=== PATIENT | female | born 1990 | race Two or more races ===

== ENCOUNTER → 2016-12-19 | Outpatient (CLI) | payer OTHER ==
[~2016-12-19] MED LIST: IBUP1TAB7 PO; PREN27TA3 PO; TYLE325T5 PO; ZANTTAB9 PO
[2016-12-19 21:07] LABS: BASO % 0.3 % (0.0-1.0); EOS # 0.2 K/mm3 (0.0-0.50); EOS % 1.9 % (0.0-3.0); LARGE UNSTAINED CELL # 0.2 K/mm3 (0.0-0.4); LARGE UNSTAINED CELL % 1.6 % (0.0-4.0); LYMPH # 2.4 K/mm3 (1.5-6.5); LYMPH % 22.4 % (24.0-44.0); MEAN CORPUSCULAR HEMOGLOBIN 33.6 pg (27.0-33.0); MEAN CORPUSCULAR HGB CONC 35.5 g/dl (32.0-36.5); MEAN CORPUSCULAR VOLUME 94.7 fl (80.0-96.0); MONO # 0.6 K/mm3 (0.0-0.8); MONO % 5.5 % (0.0-5.0); NEUTROPHILS # 7.2 K/mm3 (1.8-7.7); NEUTROPHILS % 68.4 % (36.0-66.0); PLATELET COUNT, AUTOMATED 292 k/mm3 (150-450); RED CELL DISTRIBUTION WIDTH 11.7 % (11.5-14.5); WHITE BLOOD COUNT 10.5 K/mm3 (4.0-10.0)
[2016-12-20 07:35] LABS: HBsAg Prenatal NEGATIVE (NEGATIVE)
== END ==
LOC: M LRY 15:29
PROVIDERS: ATTEND Advanced Practice Midwife
DX: Z34.81 Encounter for supervision of other normal pregnancy, first trimester (principal)

== ENCOUNTER → 2017-02-22 | Outpatient (REF) | payer OTHER | LOC: M SFHCLERA 11:23 | PROVIDERS: ATTEND Physician Assistant | DX: J02.9 Acute pharyngitis, unspecified (principal) ==

== ENCOUNTER → 2017-02-26 | Outpatient (CLI) | payer OTHER ==
--- NOTE | 2017-03-06 19:18 | REP ---
COMPLETE OBSTETRICAL ULTRASOUND: CLINICAL: Anatomical evaluation. FINDINGS: Ultrasound examination demonstrates single live intrauterine in breech presentation. motion was identified by technologist. Placenta is noted anteriorly and grade 0 without evidence for placenta previa or abruption. Amniotic fluid volume is normal. Cervix measures 3.3 cm in length and appears closed. No evidence for nuchal cord. Gestational age by current measurements 18 weeks 3 days with estimated date of delivery 07/27/2017. FHR 139 beats per minute. BPD 4.1 cm = 18 weeks 2 days HC 15.7 cm = 18 weeks 4 days AC 13.7 cm = 19 weeks 1 day FL 2.8 cm = 18 weeks 3 days HL 2.9 cm = 19 weeks 2 days HC/AC ratio 1.14. Estimated weight 258 grams (58th percentile). Anatomical assessment demonstrates normal cranium, choroid plexus, cavum, cerebellum/posterior fossa, facial features, lungs, four chamber heart, diaphragm, stomach, cord insertion/three vessel cord, kidneys/bladder, and extremities. Suboptimal evaluation of the cardiac ventricular outflow tracts and spine noted. IMPRESSION: Single live intrauterine in breech presentation. Anatomical limitations as described above may warrant reevaluation and followup. Remainder of the examination is within normal limits. Signed by Aroldo Reinoso MD 03/07/2017 08:09 A
== END ==
LOC: M SMT 09:01
PROVIDERS: ATTEND Specialist
DX: Z36.89 Encounter for other specified antenatal screening (principal); Z3A.19 19 weeks gestation of pregnancy

== ENCOUNTER → 2017-04-16 | Outpatient (CLI) | payer OTHER | LOC: M SMT 11:35 | DX: Z36.89 Encounter for other specified antenatal screening (principal); Z3A.26 26 weeks gestation of pregnancy | CPT/HCPCS: 76816 ==

== ENCOUNTER → 2017-05-13 | Outpatient (CLI) | payer OTHER ==
[2017-05-13 13:35] LABS: BASO # 0.1 10^3/uL (0.0-0.2); BASO % 0.7 % (0.0-1.0); EOS # 0.2 10^3/uL (0.0-0.50); EOS % 1.6 % (0.0-3.0); HEMATOCRIT 32.9 % (36.0-47.0); HEMOGLOBIN 11.1 g/dl (12.0-16.0); IMMATURE GRANULOCYTE % 2.3 % (0-3.0); LYMPH # 2.5 10^3/uL (1.5-6.5); LYMPH % 18.4 % (24.0-44.0); MEAN CORPUSCULAR HEMOGLOBIN 32.8 pg (27.0-33.0); MEAN CORPUSCULAR HGB CONC 33.7 g/dl (32.0-36.5); MEAN CORPUSCULAR VOLUME 97.3 fl (80.0-96.0); MONO # 1.1 10^3/uL (0.0-0.8); MONO % 7.9 % (0.0-5.0); NEUTROPHILS # 9.5 10^3/uL (1.8-7.7); NEUTROPHILS % 69.1 % (36.0-66.0); PLATELET COUNT, AUTOMATED 329 10^3/uL (150-450); RED BLOOD COUNT 3.38 10^6/uL (4.00-5.40); RED CELL DISTRIBUTION WIDTH 13.1 % (11.5-14.5); WHITE BLOOD COUNT 13.7 10^3/uL (4.0-10.0)
[2017-05-13 14:08] LABS: GLUCOSE CHALLENGE TEST 1 HOUR 115 MG/DL (LESS THAN 140)
== END ==
LOC: M SMT 09:54
DX: Z36.89 Encounter for other specified antenatal screening (principal); Z3A.00 Weeks of gestation of pregnancy not specified
CPT/HCPCS: 82950

== ENCOUNTER → 2017-05-13 | Outpatient (REF) | payer OTHER | LOC: M LAB REF 13:20 | DX: Z34.82 Encounter for supervision of other normal pregnancy, second trimester (principal) | CPT/HCPCS: 87086 ==

== ENCOUNTER → 2017-06-24 | Outpatient (REF) | payer OTHER | LOC: M LAB REF 12:55 | DX: Z34.83 Encounter for supervision of other normal pregnancy, third trimester (principal) | CPT/HCPCS: 87186 ==

== ENCOUNTER 2017-07-18 08:56 | Inpatient (IN) | payer OTHER ==
[2017-07-18] MEDS ORDERED: LR 1,000 ML IV (09:17)
[2017-07-18 09:57] LABS: HEMATOCRIT 32.6 % (36.0-47.0); HEMOGLOBIN 11.3 g/dl (12.0-15.5); MEAN CORPUSCULAR HEMOGLOBIN 33.2 pg (27.0-33.0); MEAN CORPUSCULAR HGB CONC 34.7 g/dl (32.0-36.5); MEAN CORPUSCULAR VOLUME 95.9 fl (80.0-96.0); PLATELET COUNT, AUTOMATED 325 10^3/uL (150-450); RED CELL DISTRIBUTION WIDTH 13.2 % (11.5-14.5); WHITE BLOOD COUNT 18.8 10^3/uL (4.0-10.0)
[2017-07-18] MEDS: PENICILLIN G POTASSIUM IV 5 MU in D5W MINI-BAG PLUS 100 ML IV (10:16)
[2017-07-18] MEDS: LACTATED RINGER'S 1000 ML IV (10:21)
[2017-07-18] MEDS ORDERED: FENTANYL 2MCG/ML ROPIVACAINE 0.2% IN 0.9% NACL 200ML IVBAG As Ordered (11:10)
[2017-07-18] MEDS ORDERED: LACTATED RINGER'S 1000 ML IV (12:00)
[2017-07-18] MEDS ORDERED: ePHEDrine SULFATE 25 MG/5 ML(5MG/ML) SYRINGE IV (12:00)
[2017-07-18] MEDS ORDERED: ONDANSETRON 4MG/2ML VIAL (J2405) IV (12:00)
[2017-07-18] MEDS ORDERED: NALOXONE INJ 0.4 MG/1 ML VIAL (J2310) IV (12:00)
[2017-07-18] MEDS ORDERED: EPIDURAL/PCA KEYS XX (12:00)
[2017-07-18] MEDS ORDERED: FENTANYL/ROPIVACAINE/NACL BAG 200 ML EPIDURAL (12:00)
[2017-07-18] MEDS ORDERED: REFRIGERATOR IV KEYS XX (12:00)
[2017-07-18] MEDS ORDERED: EPIDURAL COMMENT XX (12:00)
[2017-07-18] MEDS ORDERED: diphenhydrAMINE INJ 50MG/ML VIAL (J1200) IV (12:00)
[2017-07-18] MEDS ORDERED: OXYTOCIN 30 UNITS IN 0.9% NaCl 500ML IV BAG (J2590) As Ordered (12:06)
[2017-07-18] MEDS ORDERED: METHYLERGONOVINE MALEATE 0.2 MG TAB PO (12:30)
[2017-07-18] MEDS ORDERED: ANUSOL HC CREAM 30GM TOP (12:30)
[2017-07-18] MEDS ORDERED: MEASLES,MUMPS,RUBELLA VACCINE INJ (MMR-II) (90707) SC (12:30)
[2017-07-18] MEDS ORDERED: DOCUSATE SODIUM 100 MG CAP PO (12:30)
[2017-07-18] MEDS ORDERED: MOM 30ML SUSPENSION UDC PO (12:30)
[2017-07-18] MEDS ORDERED: DIBUCAINE 1% OINTMENT 30GM TOP (12:30)
[2017-07-18] MEDS ORDERED: RHOGAM 300 MCG (1500 IU) INJ (J2790) IM (12:30)
[2017-07-18 12:39] LABS: CORD GAS ABE A -3.1; CORD GAS ABE V -3.9; CORD GAS HCO3 A 21.8 MEQ/L; CORD GAS HCO3 V 21.2 MEQ/L; CORD GAS O2 SAT A 76.5 %; CORD GAS O2 SAT V 84.3 %; CORD GAS PCO2 A 38.8 mmHg; CORD GAS PCO2 V 38.9 mmHg; CORD GAS PH A 7.368 UNITS; CORD GAS PH V 7.354 UNITS; CORD GAS PO2 A 33.4 mmHg; CORD GAS PO2 V 39.9 mmHg; CORD GAS SBC A 21.4 MEQ/L; CORD GAS SBC V 20.9 MEQ/L; CORD GAS TCO2 V 22.4 MEQ/L
[2017-07-18] MEDS ORDERED: OXYTOCIN DRIP 30 UNITS in APPROPRIATE DILUENT 1 EA IV (12:45)
[2017-07-18] MEDS ORDERED: PENICILLIN G POTASSIUM IV 2.5 MU in APPROPRIATE DILUENT 1 EA IV (14:00)
[2017-07-18] MEDS: ACETAMINOPHEN 500 MG TAB PO (20:37)
[2017-07-19] MEDS: IBUPROFEN 800 MG TAB PO (04:44)
[2017-07-19] MEDS: SERTRALINE HCL 25 MG TABLET PO (08:50)
[2017-07-19] MEDS: PRENATAL VITAMINS CHEWABLE TABLET PO (08:50)
== END 2017-07-19 11:44 | disposition home or self-care (01) | DRG 775 ==
LOC: M LDO 08:56 → M LDI 09:30 → M OBS 14:32
PROVIDERS: Advanced Practice Midwife
PROC: 10E0XZZ Delivery of Products of Conception, External Approach (ICD-10-PCS; principal; 2017-07-18)
PROC: 0HQ9XZZ Repair Perineum Skin, External Approach (ICD-10-PCS; 2017-07-18)
DX: O32.6XX0 Maternal care for compound presentation, not applicable or unspecified (principal); Z37.0 Single live birth; Z3A.39 39 weeks gestation of pregnancy; O99.820 Streptococcus B carrier state complicating pregnancy; O70.0 First degree perineal laceration during delivery